=== PATIENT | female | born 1940 | race Caucasian/White ===

== ENCOUNTER 2021-11-21 11:50 | Emergency (ER) | payer MEDICARE ==
[~2021-11-21] VITALS: Ht 167.6 cm; Wt 68.5 kg
--- NOTE | 2021-11-21 12:17 | NUR ---
CAMI, VIDEOGRAPHER,CALLED FOR POSSIBLE PLACEMENT AND OR ADULT PROTECTIVE SERVICES PER DR SANDHU SINCE CAN'T TAKE CARE OF HER AND HIMSELF.
[2021-11-21] MEDS ORDERED: IV NS 0.9% 1,000 ML BAG IV ONE (12:30)
--- NOTE | 2021-11-21 12:30 | NUR ---
IV LINE STARTED BLOOD DRAWN AND SENT TO LAB.
--- NOTE | 2021-11-21 12:40 | NUR ---
PT TO RADIOLOGY FOR HEAD CT SCAN VIA [facility].
--- NOTE | 2021-11-21 13:01 | NUR ---
ATTEMPTED TO COLLECT URINE, PT UNABLE TO URINATE
[2021-11-21 13:33] LABS: BASOPHILS # (AUTO) 0.1 K/uL (0.0-0.2); BASOPHILS % (AUTO) 0.5 % (0.0-2.0); EOSINOPHILS % (AUTO) 7.3 % (0.0-6.0); HEMATOCRIT 35 % (33-45); HEMOGLOBIN 11.4 g/dL (11.5-14.8); LYMPHOCYTES # (AUTO) 2.5 K/uL (0.8-4.8); LYMPHOCYTES % (AUTO) 17.1 % (20.0-44.0); MEAN CORPUSCULAR HGB CONC 33 g/dl (31.0-36.0); MEAN CORPUSCULAR VOLUME 93 fL (82-100); MONOCYTES # (AUTO) 0.9 K/uL (0.1-1.30); MONOCYTES % (AUTO) 6.3 % (2.0-12.0); NEUTROPHILS # (AUTO) 9.9 K/uL (1.8-8.9); NEUTROPHILS % (AUTO) 68.8 % (43.0-81.0); PLATELET COUNT (AUTO) 460 K/uL (150-450); RED BLOOD CELL COUNT(AUTO) 3.74 MIL/uL (4.0-5.2); WHITE BLOOD COUNT (AUTO) 14.4 K/uL (4.3-11.0)
--- NOTE | 2021-11-21 13:52 | NUR ---
URINE COLLECTED AND SENT TO LAB
[2021-11-21 14:06] LABS: SERUM AMMONIA 18 umol/L (11-32)
[2021-11-21 14:19] LABS: ALANINE AMINOTRANSFERASE 20 U/L (12-78); ALBUMIN 3.5 g/dL (3.4-5.0); ALKALINE PHOSPHATASE 81 U/L (46-116); ASPARTATE AMINOTRANSFERASE 20 U/L (15-37); BILIRUBIN,DIRECT 0.1 mg/dL (0.0-0.2); BILIRUBIN,TOTAL 0.3 mg/dL (0.2-1.0); CALCIUM, SERUM 9.1 mg/dL (8.5-10.1); CARBON DIOXIDE 30 mmol/L (21-32); CHLORIDE 104 mmol/L (98-107); CREATININE 0.8 mg/dL (0.6-1.3); GLUCOSE 112 mg/dL (74-106); POTASSIUM 4.1 mmol/L (3.5-5.1); SODIUM SERUM 139 mmol/L (136-145); TOTAL PROTEIN, SERUM 7.1 g/dL (6.4-8.2); UREA NITROGEN, BLOOD 21 mg/dL (7-18)
[2021-11-21 14:34] LABS: ALCOHOL, BLOOD 3 mg/dL (0-0)
--- NOTE | 2021-11-21 14:37 | NUR ---
PT AMBULATED TO BATHROOM, STEADY GAIT
[2021-11-21 14:48] LABS: THYROID STIMULATING HORMONE 3.118 uIU/mL (0.358-3.74)
[2021-11-21 14:52] LABS: BILIRUBIN,URINE NEGATIVE (NEGATIVE); COLOR,URINE YELLOW (YELLOW); LEUKOCYTE ESTERASE ,URINE MODERATE (NEGATIVE); NITRITE, URINE NEGATIVE (NEGATIVE); PH,URINE 6.5 (5.0-8.0); PROTEIN,URINE NEGATIVE (NEGATIVE); UGLUCOSE NEGATIVE (NEGATIVE); UROBILINOGEN,URINE 0.2 EU/dL (0.2)
--- NOTE | 2021-11-21 15:20 | NUR ---
IV removed. Catheter intact and site benign. Pressure and 4x4 applied to site. No bleeding noted.
[2021-11-21 15:30] LABS: BACTERIA,URINE 2+ /HPF (None Seen); RBC,URINE 0-2 /HPF (0-2)
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
[2021-11-21 15:31] LABS: MUCUS,URINE Few /LPF (None Seen)
[2021-11-21] MEDS ORDERED: CEPH500T PO (15:35)
--- NOTE | 2021-11-21 15:35 | NUR ---
Patient discharged to home in stable condition. Written and verbal after care instructions given. Patient verbalizes understanding of instruction.
[2021-11-21 15:54] VITALS: BP 125/80
== END 2021-11-21 15:55 | disposition home or self-care (01) ==
LOC: ER 11:56
DX: G93.40 Encephalopathy, unspecified (principal); R00.1 Bradycardia, unspecified; I10 Essential (primary) hypertension
CPT/HCPCS: 36415; 70450; 72131; 80048; 80076; 80307; 80320; 81001; 82140; 82962; 84443; 84484; 85025; 85730; 87086; 93005; 96360; 99285; J7030; G0480

== ENCOUNTER 2022-10-10 07:44 | Inpatient (IN) | payer MEDICARE ==
[~2022-10-10] VITALS: Ht 167.6 cm; Wt 66.2 kg
[~2022-10-10 07:44] MED LIST: CEPH500T PO
--- NOTE | 2022-10-10 07:44 | NUR ---
MAGDY FROM HOME FOR NOTED CONFUSION AND APHASIA, LKW 2100 LAST NIGHT.
--- NOTE | 2022-10-10 07:46 | NUR ---
established iv line left and right ac 20 g,
--- NOTE | 2022-10-10 07:47 | NUR ---
CALLED CODE STROKE.
--- NOTE | 2022-10-10 07:50 | NUR ---
CALLED TELE MED IQ [phone] DIVYA FLOYD
--- NOTE | 2022-10-10 08:04 | NUR ---
PT TO CT VIA ACLS PROTOCALS.
[2022-10-10] MEDS ORDERED: IOHEXOL-350 100 ML VIAL IV ONE (08:08)
[2022-10-10] MEDS ORDERED: IV NS 0.9% 250 ML IV ONE (08:08)
[2022-10-10] MEDS ORDERED: CT SWABBABLE VALVE TRANS SET 1 EA INFUS.SET MC ONE (08:08)
[2022-10-10 08:18] LABS: BASOPHILS % (AUTO) 0.2 % (0.0-2.0); HEMATOCRIT 42 % (33-45); HEMOGLOBIN 13.7 g/dL (11.5-14.8); LYMPHOCYTES # (AUTO) 1.6 K/uL (0.8-4.8); LYMPHOCYTES % (AUTO) 17.5 % (20.0-44.0); MEAN CORPUSCULAR HGB CONC 33 g/dl (31.0-36.0); MEAN CORPUSCULAR VOLUME 95 fL (82-100); MONOCYTES # (AUTO) 0.6 K/uL (0.1-1.30); MONOCYTES % (AUTO) 6.2 % (2.0-12.0); NEUTROPHILS # (AUTO) 6.9 K/uL (1.8-8.9); NEUTROPHILS % (AUTO) 75.1 % (43.0-81.0); PLATELET COUNT (AUTO) 307 K/uL (150-450); RED BLOOD CELL COUNT(AUTO) 4.39 MIL/uL (4.0-5.2); WHITE BLOOD COUNT (AUTO) 9.2 K/uL (4.3-11.0)
[2022-10-10 08:29] LABS: CALCIUM, SERUM 9.1 mg/dL (8.5-10.1); CARBON DIOXIDE 24 mmol/L (21-32); CHLORIDE 102 mmol/L (98-107); CREATININE 0.8 mg/dL (0.6-1.3); GLUCOSE 126 mg/dL (74-106); POTASSIUM 3.4 mmol/L (3.5-5.1); SODIUM SERUM 137 mmol/L (136-145); UREA NITROGEN, BLOOD 15 mg/dL (7-18)
--- NOTE | 2022-10-10 09:30 | NUR ---
covid swab taken
--- NOTE | 2022-10-10 09:40 | NUR ---
MOVE SHEET SUBMITTED.
[2022-10-10] MEDS ORDERED: ATOR40TA PO (09:41)
[2022-10-10] MEDS ORDERED: CARB200T PO (09:41)
[2022-10-10] MEDS ORDERED: OLME40TA18 PO (09:41)
--- NOTE | 2022-10-10 10:15 | NUR ---
[facility] HIM ASSISTANT PAGED.
--- NOTE | 2022-10-10 10:46 | NUR ---
contact number : chucky loja [phone]
--- NOTE | 2022-10-10 11:15 | NUR ---
urine sample obtained sent to lab
--- NOTE | 2022-10-10 11:27 | NUR ---
Room assigned :325-2 -Nurse-Raine
[2022-10-10 11:35] LABS: BILIRUBIN,URINE NEGATIVE (NEGATIVE); COLOR,URINE YELLOW (YELLOW); LEUKOCYTE ESTERASE ,URINE 2+ (NEGATIVE); NITRITE, URINE NEGATIVE (NEGATIVE); PROTEIN,URINE NEGATIVE (NEGATIVE); UGLUCOSE NEGATIVE (NEGATIVE); UROBILINOGEN,URINE 0.2 EU/dL (0.2)
--- NOTE | 2022-10-10 12:25 | NUR ---
report given to julito HAYES
[2022-10-10 12:50] LABS: BACTERIA,URINE Moderate /HPF (None Seen); SQUAMOUS EPITHELIAL CELL,UR Few /HPF (None Seen)
[2022-10-10] MEDS ORDERED: POTASSIUM CHLORIDE 10 MEQ TABLET.SA PO ONE ×2 (13:00→15:30)
[2022-10-10] MEDS ORDERED: Z GUARD REMEDY 4 OZ OINT TP PRN (13:00)
[2022-10-10] MEDS ORDERED: MAGNESIUM HYDROXIDE 30 ML UDC PO PRN (13:00)
[2022-10-10] MEDS ORDERED: ACETAMINOPHEN 325 MG TABLET PO PRN (13:00)
[2022-10-10] MEDS ORDERED: ONDANSETRON HCL/PF 4 MG/2 ML VIAL IVP PRN (13:00)
[2022-10-10] MEDS ORDERED: ASPIRIN 325 MG TABLET PO ONE ×2 (13:00→15:30)
--- NOTE | 2022-10-10 13:01 | NUR ---
moved patient to inpatient room safely per acls protocol
[2022-10-10] MEDS: ENOXAPARIN SODIUM 40 MG/0.4 ML DISP.SYRIN SQ SCH (15:48)
[2022-10-10] MEDS: CEFTRIAXONE 1 G in IV D5W 50 ML IV SCH (15:50)
--- NOTE | 2022-10-10 16:53 | NUR ---
SS consult requested for rule out CVA. SW will follow up at a later time.
--- NOTE | 2022-10-10 17:00 | NUR ---
DEPUTY CLERKWAREHOUSE ASSEMBLY WORKER NOTES: RECEIVED PT FROM FREDDY GACRIA FOR JANA. PT IS AWAKE, A/OX2, ALERT TO NAME AND PLACE. NO S/S OR SOB ON RA, DENIES PAIN AT THIS TIME. IV ACCESS @ L HAND #20, R AC#20 AND L AC#20, SL, PATENT AND INTACT. NO SKIN ISSUES NOTED. PT IS ON BEDREST BUT REPORTS SHE WALKS WITH CANE AT HOME. REORIENTED TO STAFF AND UNIT, ALL SAFETY MEASURES IN PLACE, CALL LIGHT AND TABLE WITHIN REACH; ENDORSED TO PM SHIFT.
[2022-10-10 18:14] VITALS: BP 162/76
--- NOTE | 2022-10-10 19:30 | NUR ---
DUCT LAYER OPENING NOTE RECEIVED PT AWAKE IN BED. A/O X2 AND ABLE TO MAKE NEEDS KNOWN. PT STABLE ON ROOM AIR. NO SOB OR S/S OF RESPIRATORY DISTRESS. BREATHING EVEN AND UNLABORED. ON EXTERNAL NECK PINNER READING SR 74 BPM. WITH IV ACCESS RAC 20G AND LAC 20G, INTACT AND PATENT. SAFETY PRECAUTIONS IN PLACE. BED IN LOWEST LOCKED POSITION, HOB ELEVATED, SIDE RAILS UP X3, AND CALL LIGHT AND TABLE WITHIN REACH. ALL NEEDS MET AT THIS TIME.
[2022-10-10 20:00] VITALS: BP 104/60
[2022-10-10] MEDS: ATORVASTATIN 40 MG TABLET PO SCH (22:11)
[2022-10-11] VITALS (8 sets, daily range): BP systolic 129–171; BP diastolic 58–96
[2022-10-11] MEDS ORDERED: hydrALAZINE HCL IV 20 MG VIAL IV PRN (00:30)
--- NOTE | 2022-10-11 01:23 | NUR ---
RN NOTE PT HAD BP 181/52 AND HR 74. INFORMED MORTGAGE PROCESSOR LALITA WITH NEW ORDER NOTED AND CARRIED OUT. ADMINISTERED HYDRALAZINE 5MG FOR SBP>160 ORDERED. BP CURRENTLY 149/58 AND HR 82. ALL NEEDS MET AT THIS TIME.
[2022-10-11 06:15] LABS: BASOPHILS # (AUTO) 0.1 K/uL (0.0-0.2); BASOPHILS % (AUTO) 0.6 % (0.0-2.0); EOSINOPHILS % (AUTO) 0.4 % (0.0-6.0); HEMATOCRIT 39 % (33-45); HEMOGLOBIN 12.9 g/dL (11.5-14.8); LYMPHOCYTES # (AUTO) 1.9 K/uL (0.8-4.8); LYMPHOCYTES % (AUTO) 16.3 % (20.0-44.0); MEAN CORPUSCULAR HGB CONC 33 g/dl (31.0-36.0); MEAN CORPUSCULAR VOLUME 93 fL (82-100); MONOCYTES # (AUTO) 0.8 K/uL (0.1-1.30); MONOCYTES % (AUTO) 6.8 % (2.0-12.0); NEUTROPHILS # (AUTO) 8.9 K/uL (1.8-8.9); NEUTROPHILS % (AUTO) 75.9 % (43.0-81.0); PLATELET COUNT (AUTO) 352 K/uL (150-450); RED BLOOD CELL COUNT(AUTO) 4.24 MIL/uL (4.0-5.2); WHITE BLOOD COUNT (AUTO) 11.8 K/uL (4.3-11.0)
[2022-10-11 06:43] LABS: CALCIUM, SERUM 8.5 mg/dL (8.5-10.1); CREATININE 0.6 mg/dL (0.6-1.3); MAGNESIUM 2.3 mg/dL (1.8-2.4); PHOSPHORUS 2.9 mg/dL (2.5-4.9); POTASSIUM 3.5 mmol/L (3.5-5.1)
--- NOTE | 2022-10-11 06:48 | NUR ---
BEAM DOFFER CLOSING NOTE PT AWAKE IN BED. A/O X2 AND ABLE TO MAKE NEEDS KNOWN. PT STABLE ON ROOM AIR. NO SOB OR S/S OF RESPIRATORY DISTRESS. BREATHING EVEN AND UNLABORED. ON EXTERNAL PERSONAL LINES ADVISOR READING SR 75 BPM. WITH IV ACCESS RAC 20G AND LAC 20G, INTACT AND PATENT. ALL DUE MEDS GIVEN ORDERED. KEPT CLEAN AND DRY. SAFETY PRECAUTIONS IN PLACE AT ALL TIMES. BED IN LOWEST LOCKED POSITION, HOB ELEVATED, SIDE RAILS UP X3, AND CALL LIGHT AND TABLE WITHIN REACH. ALL NEEDS MET AT THIS TIME AND WILL ENDORSE TO ONCOMING NURSE FOR JANA.
[2022-10-11 06:58] LABS: THYROID STIMULATING HORMONE 2.4 uIU/mL (0.358-3.74)
--- NOTE | 2022-10-11 07:40 | NUR ---
MANUFACTURING EXECUTIVE OPENING NOTE RECEIVED PT AWAKE IN BED. 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 PT STABLE ON ROOM AIR. NO SOB OR S/S OF RESPIRATORY DISTRESS. BREATHING EVEN AND UNLABORED. ON EXTERNAL PRESENTATION DESIGNER READING SR 82 BPM. WITH IV ACCESS RAC 20G AND LAC 20G, INTACT AND PATENT. SAFETY PRECAUTIONS IN PLACE. BED IN LOWEST LOCKED POSITION, HOB ELEVATED, SIDE RAILS UP X3, AND CALL LIGHT AND TABLE WITHIN REACH. ALL NEEDS MET AT THIS TIME.
[2022-10-11] MEDS: ASPIRIN 81 MG TAB.CHEW PO SCH (08:18)
[2022-10-11] MEDS: PANTOPRAZOLE 40 MG TABLET.DR PO SCH (08:18)
[2022-10-11] MEDS: CARBAMAZEPINE 200 MG TABLET PO SCH (08:19)
[2022-10-11] MEDS: LOSARTAN POTASSIUM 50 MG TABLET PO SCH (08:19)
[2022-10-11] MEDS: ENOXAPARIN SODIUM 40 MG/0.4 ML DISP.SYRIN SQ SCH (12:39)
[2022-10-11] MEDS: CEFTRIAXONE 1 G in IV D5W 50 ML IV SCH (12:44)
--- NOTE | 2022-10-11 18:50 | NUR ---
MATERIAL REQUISITIONER CLOSING NOTE PT AWAKE IN BED. 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 PT STABLE ON ROOM AIR. NO SOB OR S/S OF RESPIRATORY DISTRESS. BREATHING EVEN AND UNLABORED. ON EXTERNAL CARD TAPE CONVERTER OPERATOR READING SR @ 80S. IV ACCESS RAC 20G AND LAC 20G, INTACT AND PATENT. ALL DUE MEDS GIVEN ORDERED. KEPT pt CLEAN AND DRY. SAFETY PRECAUTIONS IN PLACE AT ALL TIMES. BED IN LOWEST and LOCKED POSITION, SIDE RAILS UP X3, CALL LIGHT AND TABLE WITHIN EASY REACH. ALL NEEDS MET AT THIS TIME. WILL ENDORSE TO NIGHT NURSE FOR JANA.
--- NOTE | 2022-10-11 19:30 | NUR ---
POT PULLER OPENING NOTE RECEIVED PT RESTING IN BED, VERBALLY RESPONSIVE. A/O X2 AND ABLE TO MAKE NEEDS KNOWN. PT STABLE ON ROOM AIR, TOLERATING WELL. NO SOB OR S/S OF RESPIRATORY DISTRESS. BREATHING EVEN AND UNLABORED. ON EXTERNAL CT TECH READING SR 75 BPM. IV ACCESS RAC 20G AND LAC 20G SL, INTACT AND PATENT. SAFETY PRECAUTIONS IN PLACE. BED IN LOWEST LOCKED POSITION, HOB ELEVATED, SIDE RAILS UP X3, AND CALL LIGHT AND TABLE WITHIN REACH. ALL NEEDS MET AT THIS TIME.
[2022-10-11] MEDS: ATORVASTATIN 40 MG TABLET PO SCH (22:23)
[2022-10-12] VITALS: BP 153/74
[2022-10-12 04:00] VITALS: BP 146/65
--- NOTE | 2022-10-12 06:47 | NUR ---
OBSTETRICS NURSE PRACTITIONER CLOSING NOTE PT RESTING IN BED, VERBALLY RESPONSIVE. A/O X2 AND ABLE TO MAKE NEEDS KNOWN. PT STABLE ON ROOM AIR, TOLERATING WELL. NO SOB OR S/S OF RESPIRATORY DISTRESS. BREATHING EVEN AND UNLABORED. ON EXTERNAL PRODUCT ENGINEER READING SR 77 BPM. IV ACCESS RAC 20G AND LAC 20G SL, INTACT AND PATENT. ALL DUE EMDS GIVEN ORDERED. KEPT CLEAN AND DRY. SAFETY PRECAUTIONS IN PLACE AT ALL TIMES. BED IN LOWEST LOCKED POSITION, HOB ELEVATED, SIDE RAILS UP X3, AND CALL LIGHT AND TABLE WITHIN REACH. ALL NEEDS MET AT THIS TIME AND WILL ENDORSE TO ONCOMING NURSE FOR JANA.
[2022-10-12 07:00] VITALS: BP 158/75
--- NOTE | 2022-10-12 07:15 | NUR ---
WOOD TURNING LATHE OPERATOR OPENING NOTE RECEIVED PT RESTING IN BED. VERBALLY RESPONSIVE. 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 PT STABLE ON ROOM AIR. NO SOB OR S/S OF RESPIRATORY DISTRESS. BREATHING EVEN AND UNLABORED. ON EXTERNAL CASE ASSEMBLER READING SR 74 BPM. WITH IV ACCESS RAC 20G AND LAC 20G, INTACT AND PATENT. SAFETY PRECAUTIONS IN PLACE. BED IN LOWEST LOCKED POSITION, HOB ELEVATED, SIDE RAILS UP X3, AND CALL LIGHT AND TABLE WITHIN REACH. ALL NEEDS MET AT THIS TIME.
[2022-10-12 07:22] LABS: BASOPHILS # (AUTO) 0.1 K/uL (0.0-0.2); BASOPHILS % (AUTO) 0.6 % (0.0-2.0); EOSINOPHILS % (AUTO) 0.9 % (0.0-6.0); HEMATOCRIT 39 % (33-45); LYMPHOCYTES # (AUTO) 2.1 K/uL (0.8-4.8); LYMPHOCYTES % (AUTO) 19.3 % (20.0-44.0); MEAN CORPUSCULAR HGB CONC 33 g/dl (31.0-36.0); MEAN CORPUSCULAR VOLUME 93 fL (82-100); MONOCYTES # (AUTO) 0.8 K/uL (0.1-1.30); MONOCYTES % (AUTO) 7.5 % (2.0-12.0); NEUTROPHILS # (AUTO) 7.8 K/uL (1.8-8.9); NEUTROPHILS % (AUTO) 71.7 % (43.0-81.0); PLATELET COUNT (AUTO) 360 K/uL (150-450); RED BLOOD CELL COUNT(AUTO) 4.21 MIL/uL (4.0-5.2); WHITE BLOOD COUNT (AUTO) 10.8 K/uL (4.3-11.0)
[2022-10-12 07:34] LABS: ALBUMIN 3.5 g/dL (3.4-5.0); BILIRUBIN,TOTAL 0.9 mg/dL (0.2-1.0); CALCIUM, SERUM 8.5 mg/dL (8.5-10.1); CREATININE 0.7 mg/dL (0.6-1.3); MAGNESIUM 2.4 mg/dL (1.8-2.4); POTASSIUM 3.7 mmol/L (3.5-5.1)
[2022-10-12] MEDS: PANTOPRAZOLE 40 MG TABLET.DR PO SCH (08:26)
[2022-10-12] MEDS: ASPIRIN 81 MG TAB.CHEW PO SCH (08:27)
[2022-10-12] MEDS: CARBAMAZEPINE 200 MG TABLET PO SCH (08:27)
[2022-10-12] MEDS: LOSARTAN POTASSIUM 50 MG TABLET PO SCH (08:27)
[2022-10-12] MEDS: CEFTRIAXONE 1 G in IV D5W 50 ML IV SCH (12:09)
[2022-10-12] MEDS: ENOXAPARIN SODIUM 40 MG/0.4 ML DISP.SYRIN SQ SCH (12:11)
[2022-10-12 16:00] VITALS: BP 137/66
--- NOTE | 2022-10-12 18:56 | NUR ---
WELDING MACHINE OPERATOR ELECTRON BEAM CLOSING NOTE PT AWAKE IN BED. A/OX2 AND ABLE TO MAKE NEEDS KNOWN. PT STABLE ON ROOM AIR. NO SOB OR S/S OF RESPIRATORY DISTRESS. BREATHING EVEN AND UNLABORED. ON EXTERNAL MOLECULAR PHYSICIST READING SR. IV ACCESS RAC 20G AND LAC 20G, INTACT AND PATENT. ALL DUE MEDS GIVEN ORDERED. KEPT PT CLEAN AND DRY. SAFETY PRECAUTIONS IN PLACE AT ALL TIMES. BED IN LOWEST and LOCKED POSITION, SIDE RAILS UP X3, CALL LIGHT AND TABLE WITHIN EASY REACH. ALL NEEDS MET AT THIS TIME. WILL ENDORSE TO NIGHT NURSE FOR JANA.
[2022-10-12 20:00] VITALS: BP 125/77
--- NOTE | 2022-10-12 20:00 | NUR ---
TELE FORMULA MAKER INITIAL NOTES Received pt in bed awake and alert , resting at this time , denies any pain or any discomfort > She's on tele SR heart rate 68. Heplock on both arm Right AC and Left AC patent and intact. Pt aware where she at . Re-orient how to used the call light system and encourage her to used it if she needs some help or assistance. Bed in low and lock in position and side rails x2 up and low and lock in position. Kept her warm and comfortable at all times. will continue monitoring.
[2022-10-12] MEDS: ATORVASTATIN 40 MG TABLET PO SCH (22:05)
[2022-10-13] VITALS: BP 156/70
[2022-10-13 04:00] VITALS: BP 156/78
--- NOTE | 2022-10-13 07:01 | NUR ---
MARLYN LEAD PL SQL DEVELOPER CLOSING NOTES PT REMAINS SLEEPING AT THIS TIME , AROUSE EASILY. STABLE THROUGHOUT THE NIGHT . ALL DUE MEDS GIVEN AND ALL NEEDS MET. TELE SINUS RHYTHM HEART RATE 76 PER MONITOR. VITALS SIGNS STABLE. MORNING CARE RENDERED WITH THE HELPED OF DELON GIBSON. KEPT HER WARM AND COMFORTABLE AT ALL TIMES. BED ON LOCK IN POSITION WITH SIDE RAILS X2 UP AND BD ALARM SET FOR PT SAFETY. WILL ENDORSE TO AM NURSE FOR CONTINUITY OF CARE.
--- NOTE | 2022-10-13 07:33 | NUR ---
RN Opening Note PT AOx4 able to express her own concerns. Patient in bed, made aware of plan of care, verbalized understanding. Patient with no signs of distress or discomfort, IV site with no signs of infiltration. Patient states she is hard of hearing and does not have her hearing aids at the moment since she is charging them. All safety precautions taken, call light and table within reach, bed at lowest position.
[2022-10-13 08:00] VITALS: BP 141/56
[2022-10-13] MEDS: ASPIRIN 81 MG TAB.CHEW PO SCH (08:47)
[2022-10-13] MEDS: PANTOPRAZOLE 40 MG TABLET.DR PO SCH (08:47)
[2022-10-13] MEDS: CARBAMAZEPINE 200 MG TABLET PO SCH (08:48)
[2022-10-13] MEDS: LOSARTAN POTASSIUM 50 MG TABLET PO SCH (08:48)
[2022-10-13] MEDS: CEFTRIAXONE 1 G in IV D5W 50 ML IV SCH (12:19)
[2022-10-13] MEDS: ENOXAPARIN SODIUM 40 MG/0.4 ML DISP.SYRIN SQ SCH (12:20)
[2022-10-13] MEDS ORDERED: NITR100C6 PO (12:23)
[2022-10-13] MEDS ORDERED: ATOR80TA PO (12:25)
[2022-10-13] MEDS ORDERED: ASPI-1169 PO (12:25)
[2022-10-13 16:30] VITALS: BP 141/56
--- NOTE | 2022-10-13 16:37 | NUR ---
RN D/C note Patient AOx3 able to express her own concerns. Daughter at bedside picking up pt. A Medical Records provided andeducated patient and daughter on importance of following up with PCP. Per MD patient meets discharge criteria. VSS, all safety precautions taken. All safety precautions taken, patient wheeled safely to main entrance where daughter was waiting in the car.
== END 2022-10-13 16:35 | disposition home health service (06) | DRG 689 ==
LOC: ER 07:45 → TELE 12:39 → MED 10-13 13:23
PROVIDERS: ADMIT Nurse Practitioner Family; ATTEND Nurse Practitioner Family
DX: N39.0 Urinary tract infection, site not specified (principal); G93.41 Metabolic encephalopathy; G45.9 Transient cerebral ischemic attack, unspecified; B96.20 Unspecified Escherichia coli [E. coli] as the cause of diseases classified elsewhere; E87.6 Hypokalemia; I10 Essential (primary) hypertension; Z79.899 Other long term (current) drug therapy; R73.9 Hyperglycemia, unspecified
CPT/HCPCS: 36415; 70450-TC; 70496-TC; 70498-TC; 70551-TC; 71045-TC; 80048-TC; 80053-TC; 80061-TC; 81001; 82607-TC; 82962-TC; 83735-TC; 84100-TC; 84443-TC; 84484-TC; 85025-TC; 85730-TC; 87081-TC; 87086-TC; 92526; 92611-TC; 93307-TC; 97116-TC; 97530-TC; C9803; G0378; J0360; J0696; J1650; J7040; J7050; J7060; Q9967

== ENCOUNTER 2025-06-10 00:16 | Inpatient (IN) | payer MEDICARE, OTHER ==
[~2025-06-10] VITALS: Ht 165.1 cm; Wt 75.3 kg
[~2025-06-10 00:16] MED LIST changes: +ASPI-1169 PO; +ATOR80TA PO; +CARB200T PO; -CEPH500T PO; +NITR100C6 PO; +OLME40TA18 PO
[2025-06-10] MEDS ORDERED: HYDROCODONE/APAP 5/325MG TABLET ONE (01:24)
[2025-06-10] MEDS: HYDROCODONE/APAP 5/325MG TABLET PO ONE (01:38)
[2025-06-10 01:42] LABS: PLATELET COUNT (AUTO) 290 K/uL (150-450); RED BLOOD CELL COUNT(AUTO) 3.60 MIL/uL (4.0-5.2); RED CELL DISTRIBUTION WIDTH 13.7 % (11.5-15.0); WHITE BLOOD COUNT (AUTO) 9.9 K/uL (4.3-11.0)
[2025-06-10 01:52] LABS: CALCIUM, SERUM 8.5 mg/dL (8.5-10.1); CREATININE 0.9 mg/dL (0.6-1.3); SODIUM SERUM 139.0 mmol/L (136-145); UREA NITROGEN, BLOOD 24.0 mg/dL (7-18)
[2025-06-10 01:54] LABS: INR 0.94 (0.91-1.10)
[2025-06-10] MEDS ORDERED: TEMAZEPAM 15 MG CAPSULE PO PRN (05:00)
[2025-06-10] MEDS ORDERED: ACETAMINOPHEN 325 MG TABLET PO PRN (05:00)
[2025-06-10] MEDS ORDERED: Z GUARD REMEDY 4 OZ OINT TP PRN (05:00)
[2025-06-10] MEDS ORDERED: MAG HYDROX/AL HYDROX/SIMETH 30 ML UDC PO PRN (05:00)
[2025-06-10] MEDS ORDERED: HYDROCODONE/APAP 5/325MG TABLET PO PRN (05:00)
[2025-06-10] MEDS ORDERED: ONDANSETRON HCL/PF 4 MG/2 ML VIAL IVP PRN (05:00)
[2025-06-10] MEDS ORDERED: MAGNESIUM HYDROXIDE 30 ML UDC PO PRN (05:00)
[2025-06-10 05:23] VITALS: O2SAT 96
[2025-06-10 05:30] VITALS: BP_SYST 176; BP_SYST 180; BP_DIAS 58; BP_DIAS 90; TEMP 98.2; O2SAT 97
[2025-06-10] MEDS: PANTOPRAZOLE 40 MG TABLET.DR PO SCH (08:20)
[2025-06-10 12:47] LABS: APPEARANCE,URINE CLEAR (CLEAR); BLOOD, URINE 1+ Ery/uL (NEGATIVE); LEUKOCYTE ESTERASE ,URINE NEGATIVE (NEGATIVE); NITRITE, URINE NEGATIVE (NEGATIVE); UGLUCOSE NEGATIVE (NEGATIVE)
[2025-06-10 12:51] LABS: ADD URINE CULTURE NO; SQUAMOUS EPITHELIAL CELL,UR 0-2 /HPF (None Seen)
[2025-06-11] MEDS ORDERED: ASPIRIN 81 MG TAB.CHEW PO SCH (09:00)
[2025-06-11] MEDS ORDERED: ATORVASTATIN 40 MG TABLET PO SCH (09:00)
[2025-06-11] MEDS ORDERED: LOSARTAN POTASSIUM 50 MG TABLET PO SCH (09:00)
[2025-06-11] MEDS ORDERED: CARBAMAZEPINE 200 MG TABLET PO SCH (09:00)
== END 2025-06-10 13:30 | disposition home or self-care (01) | DRG 914 ==
LOC: ER 00:18 → TELE 04:46 → MED 05:40
PROVIDERS: ADMIT Internal Medicine; ATTEND Internal Medicine
DX: S09.90XA Unspecified injury of head, initial encounter (principal); M50.321 Other cervical disc degeneration at C4-C5 level; M48.02 Spinal stenosis, cervical region; W01.0XXA Fall on same level from slipping, tripping and stumbling without subsequent striking against object, initial encounter; Y92.000 Kitchen of unspecified non-institutional (private) residence as the place of occurrence of the external cause; I10 Essential (primary) hypertension; Z79.82 Long term (current) use of aspirin; Z79.899 Other long term (current) drug therapy; Z86.73 Personal history of transient ischemic attack (TIA), and cerebral infarction without residual deficits; E78.5 Hyperlipidemia, unspecified; M50.322 Other cervical disc degeneration at C5-C6 level; M50.323 Other cervical disc degeneration at C6-C7 level; M43.22 Fusion of spine, cervical region
CPT/HCPCS: 36415; 70450-TC; 70486-TC; 71045-TC; 72125-TC; 80048-TC; 81001; 85025-TC; 85730-TC; G0378